=== PATIENT | female | born 2005 | race Caucasian/White ===

== ENCOUNTER 2024-03-10 18:29 | Observation (INO) | payer MEDICAID, SELFPAY ==
[2024-03-10] VITALS (7 sets, daily range): BP systolic 92–129; BP diastolic 54–64; PULSE 71–170; RESP 16; TEMP 37–37.1; O2SAT 97–98
--- NOTE | 2024-03-10 18:30 | RT.EKG_ITS ---
APPROVED REPORT Exam: Resting ECG Reason for Exam: Chest Patient Location: E HR:77 bpm ECG Measurements Heart Rate 77 AXIS FL 132 P 23 QRSd 81 QRS 33 QT 377 T 32 QTc 426 Conclusion Sinus rhythm...normal P axis, V-rate 60- 99 sinus rhythm, normal axis, normal intervals, non ischemic
--- NOTE | 2024-03-10 18:41 | ED.GENADUL_ITS ---
Discharge Plan Disposition Patient Disposition: Admit to [facility] Condition: Stable Discharge Details Clinical Impression: Acute cholecystitis Primary Care Provider: None,None ED Provider: Peggy Disla Home Meds and New Rx's Prescriptions: No Action No Known Home Meds [facility] General Mode of arrival: ambulatory . Date/Time Provider Initiated Documentation: 03/10/24 18:37 . Limitations to Documentation: no limitations . Information obtained by: patient, RN notes reviewed and old records reviewed . HPI Narrative: 18-year-old female who is 5 weeks from emergency , presents to the ER with chief complaint of upper back chest and upper abdominal pain that began this morning. Associated with nausea no vomiting no diarrhea. Patient does endorse vaping. No other abdominal surgeries reported. Related Data Home Medications Medication Instructions Recorded Confirmed Unknown [No Known Home Meds] 03/10/24 03/10/24 Allergies Allergy/AdvReac Type Severity Reaction Status Date / Time No Known Allergies Allergy Unverified 03/10/24 18:36 General Stated Complaint: Chest Pain [place]: 3 Review of Systems All systems reviewed & are unremarkable except as noted in HPI and below Cardiovascular Cardiovascular: Reports chest pain and Reports dyspnea on exertion Respiratory Respiratory: Reports dyspnea on exertion Gastrointestinal Gastrointestinal: Reports as per HPI, Reports abdominal pain and Reports nausea Musculoskeletal Musculoskeletal: Reports back pain Exam Narrative Exam Narrative: Constitutional: Alert and oriented x3. Appears stated age. Obese body habitus. Head: Normocephalic, no trauma. Eyes: Pupils PERRL, Red reflex noted, EOM's intact. Eyelids symmetrical without lesions, discharge, or swelling. ENT: Bilateral TM's WNL, External ear normal to inspection, no mastoid TTP, swelling, or erythema, Nasal turbinates WNL, no nasal discharge. Normal dentition, Posterior pharynx WNL, no exudate. Chest: RRR, Normal S1, S2, distal pulses intact. Resp: Lungs clear to auscultation bilaterally, no wheezes, rales, or rhonchi. Abdomen: Soft, non-distended, Normoactive bowel sounds all 4 quads. Tender to RUQ with palpation. Musculoskeletal: Normal gait, Moves all 4 extremities without difficulty. Skin: No suspicious rashes or lesions. Capillary refill less than 2 sec. Neurologic: Cranial nerves II-XII intact. Alert and oriented x 3. Motor: No deficits noted. Sensory: Intact bilaterally all 4 extremities. Hematologic/Lymphatic: No ecchymosis, no lymphadenopathy. Course Vital Signs Vital signs: Vital Signs Temperature 37.1 C 03/10/24 18:33 Pulse 79 03/10/24 18:33 Respiratory Rate 16 03/10/24 18:33 Blood Pressure 129/64 03/10/24 18:33 Pulse Oximetry 98 03/10/24 18:33 Temperature 37.1 C 03/10/24 18:33 Temperature Source Temporal Artery Scan 03/10/24 18:33 Pulse 79 03/10/24 18:33 Respiratory Rate 16 03/10/24 18:33 Respiratory Effort Normal 03/10/24 18:36 Blood Pressure 129/64 03/10/24 18:33 Pulse Oximetry 98 03/10/24 18:33 Pain Level 8 03/10/24 18:33 Medical Decision Making 18-year-old female who is 5 weeks from emergency , presents to the ER with chief complaint of upper back chest and upper abdominal pain that began this morning. Associated with nausea no vomiting no diarrhea. Patient does endorse vaping. No other abdominal surgeries reported. She is not currently breast-feeding. Differential diagnosis includes but not limited to cholecystitis, pneumonia, PE Workup ordered including EKG, CBC CMP lipase, troponin will consider CT chest abdomen pelvis. EKG was reviewed by Dr. Brittani Moses ER attending, no old EKG, no STEMI. CT shows acute cholecystitis, spoke with Dr. Morrison who recommends cholecystectomy and admission, he will place orders. Discussed results with patient, she is requesting to go home and come back tomorrow, I did discuss with her that it would be against medical advice if she leaves. She states that if her baby and significant other can stay with her, she will agree to stay. Ok'd with charhouse worker that family can stay with patient. Patient informed by direct support staff. This text was generated using [employer] system, please disregard any oddities of phrase or misspellings. Imaging Data Radiologic Study: Imaging: CT Scan Radiologist's impression: VASCULATURE: Pulmonary arteries: No large central pulmonary embolism is identified. The small and distal pulmonary arteries are partially obscured by artifact from breathing motion and not well evaluated for diagnosis or exclusion of small or distal pulmonary emboli. Aorta: No thoracic or abdominal aortic aneurysm or dissection. Celiac trunk and mesenteric arteries: Celiac, superior mesenteric, and inferior mesenteric arteries grossly patent, as seen. Renal arteries: Right and left renal arteries grossly patent, as seen. Right iliac arteries: Right common iliac, internal iliac, and external iliac arteries widely patent. CLARE PETER Preliminary Radiology Report Page 2 of 3 Right femoral/popliteal arteries: Right common femoral and visualized proximal right superficial femoral arteries widely patent. Left iliac arteries: Left common iliac, internal iliac, and external iliac arteries widely patent. Left femoral/popliteal arteries: Left common femoral and visualized proximal left superficial femoral arteries widely patent. Thyroid: Thyroid gland partially excluded from view and partially obscured by artifact but grossly unremarkable, as seen, through its visualized portion. CHEST: Lungs: Lung manning somewhat obscured by artifact from breathing motion. Minimal patchy micronodular and tree-in-bud opacity, more prominent on the right. No region of tianna pulmonary consolidation. Pleural spaces: No pleural effusion or pneumothorax. Heart: Normal-sized heart. ABDOMEN AND PELVIS: Liver: Hepatomegaly, 18 cm craniocaudal dimension in the midclavicular line. Gallbladder and bile ducts: Prominent gallbladder distension. Circumferential gallbladder wall thickening. Subtle heterogeneous density in the gallbladder neck suspicious for noncalcified stones and/or sludge. No biliary dilatation. Pancreas: Normal appearing pancreas. Spleen: Normal appearing spleen. Adrenal glands: Normal appearing adrenal glands. Kidneys and ureters: Normal appearing kidneys. No hydronephrosis. Stomach and bowel: Stomach moderately distended with ingested material, fluid, and gas. No small bowel dilatation to suggest obstruction. Normal-appearing colon. No evidence of diverticulitis or colitis. Appendix: Ghostlike appendix partially obscured but normal in caliber and appearance through its visualized portion. Intraperitoneal space: No gross ascites or free air. Urinary bladder: Normal appearing urinary bladder. Reproductive: Uterus and ovaries partially obscured but normal in size. Lymph nodes: No pathologically enlarged mediastinal or hilar lymph nodes. No pathologically enlarged mesenteric, retroperitoneal, or pelvic sidewall lymph nodes. Bones/joints: No acute fracture seen among the bones of the chest, abdomen, or pelvis. Soft tissues: No gross soft tissue mass or fluid collection seen in the chest wall. No significant ventral or inguinal hernia. IMPRESSION: 1. Suspected acute cholecystitis. Clinical correlation recommended. 2. Hepatomegaly, 10 cm. 3. No thoracic or abdominal aortic aneurysm or dissection. of 3 4. Minimal patchy micronodular and tree-in-bud opacity, more prominent on the right, partially obscured by motion and not well evaluated; however, mild or early acute infectious bronchiolitis could have this appearance. Thank you for allowing us to participate in the care of your patient. Dictated and Authenticated by: Jem Dhaliwal MD Lab Data Lab results reviewed: Yes I reviewed the patient's lab results. Labs: Laboratory Tests Range/Units 03/10/24 03/10/24 03/10/24 18:37 20:40 21:21 WBC (4.4-10.8) 10^3/uL 9.11 RBC (3.93-5.22) 10^6/uL 5.44 H Hgb (11.2-15.7) g/dL 11.9 Hct (36.0-46.0) % 39.9 MCV (80-95) fL 73 L MCH (27.0-33.0) pg 21.9 L MCHC (32.0-36.0) % 29.8 L RDW (11.7-14.6) % 17.5 H Plt Count (130-400) 10^3/uL 432 H MPV (8.0-11.0) fL 9.7 Immature Gran % % 0.2 Neutrophils % % 45.3 Lymphocytes % % 43.7 Monocytes % % 6.5 Eosinophils % % 3.5 Basophils % % 0.8 Nucleated RBC % (0.0-0.3) % 0.0 Absolute Neutrophils (1.2-6.7) 10^3/uL 4.13 Absolute Lymphocytes (1.2-3.4) 10^3/uL 3.98 H Absolute Monocytes (0.1-0.8) 10^3/uL 0.59 Absolute Eosinophils (0.0-0.7) 10^3/uL 0.32 Absolute Basophils (0.0-0.2) 10^3/uL 0.07 RBC Morphology See Below Microcytosis 1+ Sodium (136-145) mmol/L 145 Potassium (3.5-5.1) mmol/L 3.6 Chloride (98-107) mmol/L 106 Carbon Dioxide (21.0-32.0) mmol/L 30.1 Anion Gap (3-11) mmol/L 8.9 BUN (7-18) mg/dL 12 Creatinine (0.55-1.02) mg/dL 0.9 Est GFR (CKD-EPI 2020) (mL/min/1.73m2) 93.86 Glucose (74-106) mg/dL 93 Calcium (8.5-10.1) mg/dL 9.8 Magnesium (1.8-2.4) mg/dL 1.6 L Total Bilirubin (0.2-1.0) mg/dL 0.3 AST (15-37) U/L 22 ALT (14-59) U/L 53 Alkaline Phosphatase (46-116) U/L 154 H Troponin I (< or =60) ng/L < 50 < 50 Total Protein (6.4-8.2) g/dL 7.6 Albumin (3.4-5.0) g/dL 3.6 Lipase (16-77) U/L 34 Urine Color (Yellow) Yellow Urine Clarity (Clear) Clear Urine pH (5-8) 7.0 Ur Specific [place] (1.005-1.025) 1.015 Urine Protein (Neg-Trace) mg/dL Negative Urine Ketones (Negative) mg/dL Negative Urine Blood (Negative) Negative Urine Nitrite (Negative) Negative Urine Bilirubin (Negative) Negative Urine Urobilinogen (Up to 0.2) mg/dL 1.0 H Ur Leukocyte Esterase (Negative) Negative Urine Glucose (Negative) mg/dL Negative Quality:SDOH Health Related Social Needs: Health related social needs risk of homeless PFSH All Active Problems (Updated 03/10/24 @ 22:43 by Peggy Disla NP) Acute cholecystitis (Acute) Social History Smoking risk assessment performed?: No
[2024-03-10 19:12] LABS: Abs Immature Grans 0.02 10^3/uL (0.0-0.06); Absolute Basophil Count 0.07 10^3/uL (0.0-0.2); Absolute Eosinophil Count 0.32 10^3/uL (0.0-0.7); Absolute Lymphocyte Count 3.98 10^3/uL (1.2-3.4); Absolute Monocyte Count 0.59 10^3/uL (0.1-0.8); Absolute Neutrophil Count 4.13 10^3/uL (1.2-6.7); Basophils % 0.8 %; Eosinophils % 3.5 %; HCT 39.9 % (36.0-46.0); HGB 11.9 g/dL (11.2-15.7); Immature Grans % 0.2 %; Lymphocytes % 43.7 %; MCH 21.9 pg (27.0-33.0); MCHC 29.8 % (32.0-36.0); MCV 73 fL (80-95); MPV 9.7 fL (8.0-11.0); Monocytes % 6.5 %; Neutrophils % 45.3 %; Platelet Count 432 10^3/uL (130-400); RBC 5.44 10^6/uL (3.93-5.22); RDW 17.5 % (11.7-14.6); RDW-SD 45.9 fL; WBC 9.11 10^3/uL (4.4-10.8)
[2024-03-10 19:27] LABS: Diff Comment RBC Morph Reviewed
[2024-03-10 19:28] LABS: Microcytosis 1+
[2024-03-10 19:31] LABS: ALT 53 U/L (14-59); AST 22 U/L (15-37); Albumin 3.6 g/dL (3.4-5.0); Alkaline Phosphatase 154 U/L (46-116); Anion Gap 8.9 mmol/L (3-11); BUN 12 mg/dL (7-18); Bilirubin, Total 0.3 mg/dL (0.2-1.0); CO2 30.1 mmol/L (21.0-32.0); CREATININE 0.9 mg/dL (0.55-1.02); Calcium 9.8 mg/dL (8.5-10.1); Chloride 106 mmol/L (98-107); Estimated GFR 93.86 (mL/min/1.73m2); Glucose 93 mg/dL (74-106); Lipase 34 U/L (16-77); Magnesium 1.6 mg/dL (1.8-2.4); Potassium 3.6 mmol/L (3.5-5.1); Sodium 145 mmol/L (136-145); Total Protein 7.6 g/dL (6.4-8.2); Troponin I < 50 ng/L (< or =60)
--- NOTE | 2024-03-10 20:00 | DI.CT_ITS ---
Exam(s) CT CHEST PE ABD PELVIS W EXAM: CT CHEST PE ABD PELVIS W CLINICAL HISTORY: Chest Pain, RUQ abd pain, S/P . TECHNIQUE: Imaging Protocol: Axial CT angiography was performed with multi-slice acquisition and mu lti-planar and/or 3D reconstructions. CONTRAST MATERIAL: Intravenous: Omnipaque 350contrast volume:100 mL COMPARISON: No exams were available for comparison FINDINGS: The examination is limited due to patient motion artifact. CHEST: Tracheobronchial tree: Patent where visualized. Pulmonary parenchyma: No consolidation or dominant measurable mass. No architectural distortion. Ther e is a mild micronodular infiltrate in the right upper lobe. No focal consolidation is seen. Pulmonary Arteries: The poor for pulmonary arteries are suboptimally visualized visualized secondary to patient motion artifact. No large central pulmonary embolism is seen. Mediastinum and Marilee: No dominant adenopathy or fluid collection. The esophagus is unremarkable. Ther e is soft tissue in the anterior mediastinum likely reflecting residual thymic tissue. Visualized thyroid gland: Unremarkable. Pleura: No effusion or pneumothorax. Heart: The heart is not dilated. No coronary artery calcifications are seen. No pericardial effusion. Aorta: Thoracic aorta non-dilated. No evidence of dissection. Bones: Within normal limits for the patient's age. Soft tissues: Unremarkable. ABDOMEN: Liver: Normal density. No measurable mass. Portal, Superior Mesenteric, and Splenic Veins: Unremarkable. Gallbladder and Biliary Tract: Cholelithiasis. No biliary ductal dilatation. The gallbladder is dis tended measuring 4.8 cm. No inflammatory stranding is seen. There is a question of gallbladder wall thickening. Pancreas: Normal density, no abnormal calcifications or inflammatory process. Spleen: Normal. Adrenals: No masses seen. Kidneys: Normal size, contour and axis. No radiodense stones or obstructive uropathy. No masses seen. Abdominal Aorta: Abdominal portion non-dilated. Bowel: No obstruction or bowel wall thickening. No evidence of appendicitis. Peritoneal Cavity: No ascites, collection or mesenteric inflammatory response. No free air. Lymph Nodes: Within normal limits. Bones: Within normal limits for the patient's age. Soft Tissues: Unremarkable. PELVIS: Bladder: Symmetric distention, no gross wall thickening. Reproductive Organs: Unremarkable as visualized. Lymph Nodes: Within normal limits. Bones: Within normal limits. IMPRESSION: 1. There is patient motion artifact limiting evaluation of the peripheral pulmonary arteries. No lar ge pulmonary embolus is seen. No evidence of right heart strain. 2. No evidence of thoracic aortic dissection or aneurysm. 3. Small micronodular right upper lobe infiltrate. This may represent small airways disease. Please correlate clinically. 4. Cholelithiasis. Distended gallbladder and question of gallbladder wall thickening. This may repr esent an acute cholecystitis. Gallbladder ultrasound should be considered for further evaluation. RADIATION DOSE DELIVERED: 2,138.99mGy.cm Total DLP DATA REPOSITORY: All CT scans at this facility are submitted to the National Radiology Data Registry (NRDR) Dose Index Registry (DIR) with the [employer] (ACR). RADIATION OPTIMIZATION: All CT scans at this facility use at least one of these dose optimization te chniques: automated exposure control; mA and/or kV adjustment per patient size (includes targeted exa ms where dose is matched to clinical indication); or iterative reconstruction.
[2024-03-10] MEDS: Omnipaque 350 MG/ML 100 ML BTL IJ (20:32)
[2024-03-10] MEDS: Normal Saline - Diluent 50 ML VIAL IJ (20:32)
[2024-03-10 20:53] LABS: Bilirubin Negative (Negative); Blood Negative (Negative); Clarity Clear (Clear); Glucose Negative (Negative); Ketones Negative (Negative); Leukocyte Esterase Negative (Negative); Nitrite Negative (Negative); Specific Gravity 1.015 (1.005-1.025)
[2024-03-10 21:47] LABS: Troponin I < 50 ng/L (< or =60)
--- NOTE | 2024-03-10 21:56 | DI.VRAD_ITS ---
PROCEDURE INFORMATION: Exam: CTA Chest With Contrast CTA Abdomen With Contrast Exam date and time: 03/10/2024 8:16 PM Age: 18 years old Clinical indication: Chest wall pain; Other: Ruq abd pain; Additional info: Chest pain, ruq abd pain, S/P TECHNIQUE: Imaging protocol: Computed tomographic angiography of the chest with contrast. Exam focused on the arteries. Computed tomographic angiography of the abdomen with contrast. Exam focused on the arteries. 3D rendering (Not supervised by radiologist): MIP and/or 3D reconstructed images were created by the technologist. Contrast material: OMNI 350; Contrast volume: 100 ml; Contrast route: INTRAVENOUS (IV); COMPARISON: No relevant prior studies available. FINDINGS: VASCULATURE: Pulmonary arteries: No large central pulmonary embolism is identified. The small and distal pulmonary arteries are partially obscured by artifact from breathing motion and not well evaluated for diagnosis or exclusion of small or distal pulmonary emboli. Aorta: No thoracic or abdominal aortic aneurysm or dissection. Celiac trunk and mesenteric arteries: Celiac, superior mesenteric, and inferior mesenteric arteries grossly patent, as seen. Renal arteries: Right and left renal arteries grossly patent, as seen. Right iliac arteries: Right common iliac, internal iliac, and external iliac arteries widely patent. Right femoral/popliteal arteries: Right common femoral and visualized proximal right superficial femoral arteries widely patent. Left iliac arteries: Left common iliac, internal iliac, and external iliac arteries widely patent. Left femoral/popliteal arteries: Left common femoral and visualized proximal left superficial femoral arteries widely patent. Thyroid: Thyroid gland partially excluded from view and partially obscured by artifact but grossly unremarkable, as seen, through its visualized portion. CHEST: Lungs: Lung manning somewhat obscured by artifact from breathing motion. Minimal patchy micronodular and tree-in-bud opacity, more prominent on the right. No region of tianna pulmonary consolidation. Pleural spaces: No pleural effusion or pneumothorax. Heart: Normal-sized heart. ABDOMEN AND PELVIS: Liver: Hepatomegaly, 18 cm craniocaudal dimension in the midclavicular line. Gallbladder and bile ducts: Prominent gallbladder distension. Circumferential gallbladder wall thickening. Subtle heterogeneous density in the gallbladder neck suspicious for noncalcified stones and/or sludge. No biliary dilatation. Pancreas: Normal appearing pancreas. Spleen: Normal appearing spleen. Adrenal glands: Normal appearing adrenal glands. Kidneys and ureters: Normal appearing kidneys. No hydronephrosis. Stomach and bowel: Stomach moderately distended with ingested material, fluid, and gas. No small bowel dilatation to suggest obstruction. Normal-appearing colon. No evidence of diverticulitis or colitis. Appendix: Ghostlike appendix partially obscured but normal in caliber and appearance through its visualized portion. Intraperitoneal space: No gross ascites or free air. Urinary bladder: Normal appearing urinary bladder. Reproductive: Uterus and ovaries partially obscured but normal in size. Lymph nodes: No pathologically enlarged mediastinal or hilar lymph nodes. No pathologically enlarged mesenteric, retroperitoneal, or pelvic sidewall lymph nodes. Bones/joints: No acute fracture seen among the bones of the chest, abdomen, or pelvis. Soft tissues: No gross soft tissue mass or fluid collection seen in the chest wall. No significant ventral or inguinal hernia. IMPRESSION: 1. Suspected acute cholecystitis. Clinical correlation recommended. 2. Hepatomegaly, 10 cm. 3. No thoracic or abdominal aortic aneurysm or dissection. 4. Minimal patchy micronodular and tree-in-bud opacity, more prominent on the right, partially obscured by motion and not well evaluated; however, mild or early acute infectious bronchiolitis could have this appearance. Dictated and Authenticated by: Jem Dhaliwal MD. Ordering:IRVING Woods MD
--- NOTE | 2024-03-10 22:10 | HPE_ITS ---
Date of service: 03/10/24 Time of Service: 22:10 Assessment and Plan Assessment and plan (1) Acute cholecystitis: Status: Acute Assessment and plan: History does seem consistent with acute cholecystitis, however, she is not very tender, and other inflammatory markers are all normal. I will admit her, and start her on some antibiotics, and repeat the labs in the morning. History of Present Illness History of Present Illness Chief Complaint: Abdominal pain Narrative: Jn is a 18-year-old woman who comes to the emergency department with acute onset of abdominal pain with nausea. Pain is sharp and stabbing, and radiates towards her back. Alk phos was noted to be mildly elevated, and she underwent a CT scan of the abdomen and pelvis. That showed a distended gallbladder with gallstones. Review of Systems Constitutional Constitutional: Reports fatigue (), Denies fever(s) and Reports poor appetite Eyes Eyes: Reports system reviewed and no additional complaints, except as documented ENT Ears, Nose, Mouth, and Throat: Reports system reviewed and no additional complaints, except as documented Cardiovascular Cardiovascular: Denies chest pain and Denies dyspnea Respiratory Respiratory: Denies chest congestion, Denies cough and Denies dyspnea Gastrointestinal Gastrointestinal: Reports abdominal pain, Reports cramping, Reports nausea and Denies vomiting Genitourinary Genitourinary: Reports system reviewed and no additional complaints, except as documented Musculoskeletal Musculoskeletal: Reports system reviewed and no additional complaints, except as documented Endocrine Endocrine: Reports fatigue () Hematologic/Lymphatic Hematologic/Lymphatic: Denies easy bleeding and Denies easy bruising PFSH All Active Problems (Updated 03/10/24 @ 22:43 by Peggy Disla NP) Acute cholecystitis (Acute) Social History Smoking risk assessment performed?: No Housing: other Meds Allergies and Home Medications Allergies Allergy/AdvReac Type Severity Reaction Status Date / Time No Known Allergies Allergy Unverified 03/10/24 18:36 Home Medications Medication Instructions Recorded Confirmed Type Unknown [No Known Home Meds] 03/10/24 03/10/24 History Exam GI Other: Abdomen is soft and nondistended. She is a little bit tender to some deep palpation, but I would consider this relatively mild. She is in no distress. Results Labs 03/10/24 18:37 03/10/24 18:37 Labs: Laboratory Results - last 24 hr 03/10/24 03/10/24 03/10/24 18:37 20:40 21:21 WBC 9.11 RBC 5.44 H Hgb 11.9 Hct 39.9 MCV 73 L MCH 21.9 L MCHC 29.8 L RDW 17.5 H Plt Count 432 H MPV 9.7 Immature Gran % 0.2 Neutrophils % 45.3 Lymphocytes % 43.7 Monocytes % 6.5 Eosinophils % 3.5 Basophils % 0.8 Nucleated RBC % 0.0 Absolute Neutrophils 4.13 Absolute Lymphocytes 3.98 H Absolute Monocytes 0.59 Absolute Eosinophils 0.32 Absolute Basophils 0.07 RBC Morphology See Below Microcytosis 1+ Sodium 145 Potassium 3.6 Chloride 106 Carbon Dioxide 30.1 Anion Gap 8.9 BUN 12 Creatinine 0.9 Est GFR (CKD-EPI 2020) 93.86 Glucose 93 Calcium 9.8 Magnesium 1.6 L Total Bilirubin 0.3 AST 22 ALT 53 Alkaline Phosphatase 154 H Troponin I < 50 < 50 Total Protein 7.6 Albumin 3.6 Lipase 34 Urine Color Yellow Urine Clarity Clear Urine pH 7.0 Ur Specific [place] 1.015 Urine Protein Negative Urine Ketones Negative Urine Blood Negative Urine Nitrite Negative Urine Bilirubin Negative Urine Urobilinogen 1.0 H Ur Leukocyte Esterase Negative Urine Glucose Negative Last Vital Signs Temp 98.8 F 03/10/24 18:33 Pulse 74 03/10/24 22:03 Resp 16 03/10/24 18:33 BP 122/55 L 03/10/24 22:03 Pulse Ox 98 03/10/24 22:03 Time Spent Time spent with Patient: <40 minutes Time was spent: preparing to see the patient(eg.review tests), referring, communicating with other health care management associate, indepentently interpreting results and counseling the patient
[2024-03-11] MEDS: ACETAMINOPHEN 1,000 MG/100 ML BTL 400 MG IVPB ×2 (01:17→06:00)
[2024-03-11] MEDS: Lactated Ringers 1,000 ML 75 ML IV (01:17)
--- NOTE | 2024-03-11 02:35 | NUR.NOTE ---
I am making this note for clear communication. Antibiotic Admin Note. At the time of this note, i recognized that i mixed a zosyn, 3.375g in 100ml of 0.9% NS instead of the ordered 50ml of NS. the medication was not given to the patient. the medication will be wasted and another vial collected. Nursing Note:
[2024-03-11] MEDS: PIPERACILLIN/TAZO 3.375 GM in Normal Saline 50 ML IVPB ×2 (02:54→08:35)
[2024-03-11 05:10] VITALS: BP 106/60; PULSE 77; RESP 16; TEMP 35.6; O2SAT 97
[2024-03-11 08:00] VITALS: BP 100/66; PULSE 62; RESP 18; TEMP 36; O2SAT 98
[2024-03-11] MEDS: Normal Saline Flush 10 ML SYR IVP (08:35)
[2024-03-11 10:23] LABS: BUN 8 mg/dL (7-18); CREATININE 0.8 mg/dL (0.55-1.02); Calcium 8.6 mg/dL (8.5-10.1); Estimated GFR 108.11 (mL/min/1.73m2); Glucose 91 mg/dL (74-106)
[2024-03-11 10:24] LABS: ALT 51 U/L (14-59); AST 28 U/L (15-37); Albumin 2.9 g/dL (3.4-5.0); Alkaline Phosphatase 125 U/L (46-116); Anion Gap 10.4 mmol/L (3-11); Bilirubin, Total 0.4 mg/dL (0.2-1.0); CO2 26.6 mmol/L (21.0-32.0); Chloride 106 mmol/L (98-107); Potassium 3.9 mmol/L (3.5-5.1); Sodium 143 mmol/L (136-145); Total Protein 6.4 g/dL (6.4-8.2)
[2024-03-11 10:25] LABS: RBC 4.69 10^6/uL (3.93-5.22); WBC 7.48 10^3/uL (4.4-10.8)
[2024-03-11 10:26] LABS: Absolute Basophil Count 0.06 10^3/uL (0.0-0.2); Absolute Eosinophil Count 0.28 10^3/uL (0.0-0.7); Absolute Lymphocyte Count 3.27 10^3/uL (1.2-3.4); Absolute Monocyte Count 0.55 10^3/uL (0.1-0.8); Absolute Neutrophil Count 3.29 10^3/uL (1.2-6.7); Basophils % 0.8 %; Eosinophils % 3.7 %; HCT 34.6 % (36.0-46.0); HGB 10.4 g/dL (11.2-15.7); Immature Grans % 0.4 %; Lymphocytes % 43.7 %; MCH 22.2 pg (27.0-33.0); MCHC 30.1 % (32.0-36.0); MCV 74 fL (80-95); MPV 10.1 fL (8.0-11.0); Monocytes % 7.4 %; Platelet Count 365 10^3/uL (130-400); RDW 17.4 % (11.7-14.6); RDW-SD 45.9 fL
[2024-03-11 10:27] LABS: Abs Immature Grans 0.03 10^3/uL (0.0-0.06); Diff Comment RBC Morph Reviewed; Microcytosis 2+
--- NOTE | 2024-03-11 11:07 | PGE_ITS ---
Date of Service Date of service: 03/11/24 Time of Service: 11:07 Assessment and Plan Assessment and plan (1) Acute cholecystitis: Status: Acute Assessment and plan: White count remains normal, she has been afebrile. Furthermore, her symptoms have improved quite a bit. With a normalizing alk phos, I suspect this is more like biliary colic than true acute cholecystitis. I will advance her diet and see how she feels this morning. If symptoms continue to improve, then we will plan for discharge home and outpatient interval cholecystectomy. Subjective Subjective Interval history since last seen: Jn is feeling quite tired, but overall feels better than yesterday. She says her pain has improved dramatically. She has a little bit of an appetite this morning, and denies any nausea. Exam GI Other: Abdomen is soft, and she is not at all tender in the right upper quadrant. She is not distended. She has good bowel sounds. Objective Last Vital Signs Temp 96.8 F L 03/11/24 08:00 Pulse 62 03/11/24 08:00 Resp 18 03/11/24 08:00 BP 100/66 03/11/24 08:00 Pulse Ox 98 03/11/24 08:00 Laboratory Results - last 24 hr 03/10/24 03/10/24 03/10/24 18:37 20:40 21:21 WBC 9.11 RBC 5.44 H Hgb 11.9 Hct 39.9 MCV 73 L MCH 21.9 L MCHC 29.8 L RDW 17.5 H Plt Count 432 H MPV 9.7 Immature Gran % 0.2 Neutrophils % 45.3 Lymphocytes % 43.7 Monocytes % 6.5 Eosinophils % 3.5 Basophils % 0.8 Nucleated RBC % 0.0 Absolute Neutrophils 4.13 Absolute Lymphocytes 3.98 H Absolute Monocytes 0.59 Absolute Eosinophils 0.32 Absolute Basophils 0.07 RBC Morphology See Below Microcytosis 1+ Sodium 145 Potassium 3.6 Chloride 106 Carbon Dioxide 30.1 Anion Gap 8.9 BUN 12 Creatinine 0.9 Est GFR (CKD-EPI 2020) 93.86 Glucose 93 Calcium 9.8 Magnesium 1.6 L Total Bilirubin 0.3 AST 22 ALT 53 Alkaline Phosphatase 154 H Troponin I < 50 < 50 Total Protein 7.6 Albumin 3.6 Lipase 34 Urine Color Yellow Urine Clarity Clear Urine pH 7.0 Ur Specific [place] 1.015 Urine Protein Negative Urine Ketones Negative Urine Blood Negative Urine Nitrite Negative Urine Bilirubin Negative Urine Urobilinogen 1.0 H Ur Leukocyte Esterase Negative Urine Glucose Negative 03/11/24 06:19 WBC 7.48 RBC 4.69 Hgb 10.4 L Hct 34.6 L MCV 74 L MCH 22.2 L MCHC 30.1 L RDW 17.4 H Plt Count 365 MPV 10.1 Immature Gran % 0.4 Neutrophils % 44.0 Lymphocytes % 43.7 Monocytes % 7.4 Eosinophils % 3.7 Basophils % 0.8 Nucleated RBC % 0.0 Absolute Neutrophils 3.29 Absolute Lymphocytes 3.27 Absolute Monocytes 0.55 Absolute Eosinophils 0.28 Absolute Basophils 0.06 RBC Morphology See Below Microcytosis 2+ Sodium 143 Potassium 3.9 Chloride 106 Carbon Dioxide 26.6 Anion Gap 10.4 BUN 8 Creatinine 0.8 Est GFR (CKD-EPI 2020) 108.11 Glucose 91 Calcium 8.6 Magnesium Total Bilirubin 0.4 AST 28 ALT 51 Alkaline Phosphatase 125 H Troponin I Total Protein 6.4 Albumin 2.9 L Lipase Urine Color Urine Clarity Urine pH Ur Specific [place] Urine Protein Urine Ketones Urine Blood Urine Nitrite Urine Bilirubin Urine Urobilinogen Ur Leukocyte Esterase Urine Glucose Time Spent with Patient Time Spent with Patient: 25-34 minutes Time was spent: preparing to see the patient(eg.review tests), indepentently interpreting results and counseling the patient
--- NOTE | 2024-03-11 12:29 | DSE_ITS ---
Date of service: 03/11/24 Time of Service: 12:29 DS: Diagnosis Discharge Diagnosis (1) Acute cholecystitis: Status: Acute Asessment and Plan: Discharge home with antibiotics and outpatient follow-up Discharge Plan Disposition Patient Disposition: Home Condition: Improving Discharge Details Reason For Visit: Acute cholecystitis Admit Date/Time: 03/10/24 22:15 Admit Provider: Jared Morrison Attending Provider: Jared Morrison Primary Care Provider: None,None Hospital Course Hospital Course: Jn is 18 years old, and she came to the hospital with abdominal pain and nausea. Lab findings raise the possibility of cholecystitis, and she underwent a CT scan of the abdomen and pelvis. That demonstrated distended gallbladder with gallstones. She was admitted and kept NPO. Antibiotics were started. By the morning, her pain had resolved and she was tolerating a diet without any issues. She was discharged home with outpatient instructions, and plan for interval cholecystectomy Home Meds and New Rx's Prescriptions: New ciprofloxacin HCl [Cipro] 500 mg tablet 500 mg PO BID Qty: 12 0RF Rx Instructions: Take 1 tablet by mouth in the morning, 1 tablet by mouth in the evening Discharge Instructions Instructions: Biliary Colic (GEN), Low Fat Diet (DC) Additional Instructions: Jn, It was a pleasure meeting you in the hospital, and I hope you make a quick recovery. Like we talked about while you are here, you do have stones within your gallbladder, and I suspect that is the source of the pain that you experienced. Thankfully, your labs and vital signs have all been reassuring, and it seems like he tolerated a diet, which sometimes can exacerbate the symptoms. I would like to treat you for 6 more days with the antibiotics. I provided a prescription for a medication called ciprofloxacin. He will take it once in the morning, and once in the evening for 6 more days. I have also taken the liberty of scheduling a follow-up appointment in my office. I would like to see you on the at 8:45 in the morning. If you cannot make that time, please feel free to contact the office, and find a time in day that works a little better for you. In the meantime, I would suggest trying to stay away from any foods that contain a significant amount of fat. I attached a document that describes some things that may be a little easier to tolerate. This is important, because fats tend to exacerbate symptoms of gallstones. Like we talked about while you are in the hospital, I do think you will benefit from removal of your gallbladder in the near future. I typically recommend about 4 to 6 weeks from the time of your attack in order to give a chance for the inflammation to resolve a bit. If you develop any similar symptoms in the meantime, please do not hesitate to call the office, or go back to the emergency department if it is after hours. If that is the case, then we may need to rethink the timing of your gallbladder removal. If you have any questions at all please give me a call. Activity:: Activity as Tolerated Equipment/Supplies:: No Equipment Needed Diet:: Low-fat DS: Summary Time Spent with Patient providing and/or coordinating discharge services: Less than 30 minutes Status at Discharge Functional status at discharge: independent ambulation Overall status at discharge: patient is back to baseline Mental Status: mental status grossly normal Speech and Movement: speech and movement normal Mood: congruent mood Affect: normal affect Quality:SDOH Health Related Social Needs: Health related social needs material hardship, food in security, transpo insecurity, personal safety Exam GI Other: Abdomen is soft and nontender. She is not distended. Psych Mental Status: mental status grossly normal Speech and Movement: speech and movement normal Mood: congruent mood Affect: normal affect DS: Data Vitals/I&O Vitals and I&O: Vital Signs Temperature 96.8 F L 03/11/24 08:00 Temperature Source Tympanic 03/11/24 08:00 Pulse 62 03/11/24 08:00 Pulse Rhythm Regular 03/10/24 23:40 Respiratory Rate 18 03/11/24 08:00 Respiratory Effort Normal 03/10/24 23:40 Respiratory Depth Normal 03/10/24 23:40 Respiratory Pattern Normal 03/10/24 23:40 Blood Pressure 100/66 03/11/24 08:00 Blood Pressure Mean 50 03/10/24 22:53 Pulse Oximetry 98 03/11/24 08:00 Oxygen Delivery Method Room Air 03/11/24 08:00 Oxygen Flow Rate 0 03/11/24 08:00 Pain Level 3 03/11/24 08:00 Comment pt reports about a year ago had a gallbladder visit. ignored until this admission 03/10/24 23:04 Intake & Output 03/10/24 03/11/24 03/11/24 23:59 11:59 23:59 Intake Total 150 / 970 820 / 970 Balance 150 / 970 820 / 970 Weight 255 lb 11.779 oz Intake: IV 150 / 970 820 / 970 Data Completed and Pending Labs on day of discharge: Labs from last 24 hours 03/11/24 03/10/24 03/10/24 06:19 21:21 20:40 WBC 7.48 RBC 4.69 Hgb 10.4 L Hct 34.6 L MCV 74 L MCH 22.2 L MCHC 30.1 L RDW 17.4 H Plt Count 365 MPV 10.1 Immature Gran % 0.4 Neutrophils % 44.0 Lymphocytes % 43.7 Monocytes % 7.4 Eosinophils % 3.7 Basophils % 0.8 Nucleated RBC % 0.0 Absolute Neutrophils 3.29 Absolute Lymphocytes 3.27 Absolute Monocytes 0.55 Absolute Eosinophils 0.28 Absolute Basophils 0.06 RBC Morphology See Below Microcytosis 2+ Sodium 143 Potassium 3.9 Chloride 106 Carbon Dioxide 26.6 Anion Gap 10.4 BUN 8 Creatinine 0.8 Est GFR (CKD-EPI 2020) 108.11 Glucose 91 Calcium 8.6 Magnesium Total Bilirubin 0.4 AST 28 ALT 51 Alkaline Phosphatase 125 H Troponin I < 50 Total Protein 6.4 Albumin 2.9 L Lipase Urine Color Yellow Urine Clarity Clear Urine pH 7.0 Ur Specific [place] 1.015 Urine Protein Negative Urine Ketones Negative Urine Blood Negative Urine Nitrite Negative Urine Bilirubin Negative Urine Urobilinogen 1.0 H Ur Leukocyte Esterase Negative Urine Glucose Negative 03/10/24 18:37 WBC 9.11 RBC 5.44 H Hgb 11.9 Hct 39.9 MCV 73 L MCH 21.9 L MCHC 29.8 L RDW 17.5 H Plt Count 432 H MPV 9.7 Immature Gran % 0.2 Neutrophils % 45.3 Lymphocytes % 43.7 Monocytes % 6.5 Eosinophils % 3.5 Basophils % 0.8 Nucleated RBC % 0.0 Absolute Neutrophils 4.13 Absolute Lymphocytes 3.98 H Absolute Monocytes 0.59 Absolute Eosinophils 0.32 Absolute Basophils 0.07 RBC Morphology See Below Microcytosis 1+ Sodium 145 Potassium 3.6 Chloride 106 Carbon Dioxide 30.1 Anion Gap 8.9 BUN 12 Creatinine 0.9 Est GFR (CKD-EPI 2020) 93.86 Glucose 93 Calcium 9.8 Magnesium 1.6 L Total Bilirubin 0.3 AST 22 ALT 53 Alkaline Phosphatase 154 H Troponin I < 50 Total Protein 7.6 Albumin 3.6 Lipase 34 Urine Color Urine Clarity Urine pH Ur Specific [place] Urine Protein Urine Ketones Urine Blood Urine Nitrite Urine Bilirubin Urine Urobilinogen Ur Leukocyte Esterase Urine Glucose PFSH All Active Problems (Updated 03/10/24 @ 22:43 by Peggy Disla NP) Acute cholecystitis (Acute) Social History Smoking risk assessment performed?: No Housing: other Time Spent with Patient Time Spent with Patient: <45 minutes Time was spent: indepentently interpreting results and care coordination
--- NOTE | 2024-03-11 13:25 | NUR.NOTE ---
at 1320, staff alerted CC to 5wk old asleep with father who is also asleep on the cot. Patient is also asleep in hospital bed. Steeping Press Tender and myself in to offer assistance. Father did not wake with gentle shaking. At this point the patient woke up and staff had asked if the patient would want assistance placing the baby in the bassinette provided in the room, or if the patient and S.O. planned on continuing to sleep, allow someone to sit with the for safety. Pt stated Well it's my baby, I birthed her. Again staff just reiterated safety concern. Again pt stated He will not roll over while she is right there, and she is fine. Nursing Note:
--- NOTE | 2024-03-11 16:05 | CMDISCH_ITS ---
Date of service: 03/11/24 Time of Service: 16:05 LACE Index Scoring Tool Questions: Length of Stay (in days): 1 Was the patient admitted via the E.D.?: Yes E.D. Visits: 0 Answers: Total Score: 4 Risk of Readmission: Low Risk Care Management Discharge Plan Reason for Hospitalization: Cholecystitis; biliary colic Discharge Plan: Jn will return with her significant other and their five week old to the local hotel while awaiting housing in [place], where Jn is from. She provided feedback about her stay and care which was deferred to [facility] for follow up. She declines additional supports at this time, is tired and wants to leave. Jn declines offer for PCP attachment stating she just calls her OBGYN when she needs care. She reports anticipating relocating back to [place] in April. Patient/Family Education Needs: Review discharge instructions, discuss Ask Me Three. SDOH Health Related Social Needs: Health related social needs material hardship, food in security, transpo insecurity, personal safety Health related social needs: food insecurity(Z59.41), transportation insecurity(Z59.82), material hardship(utilities)(Z59.87) and problem related to primary support group(Z63.9) Health related social needs details: Awaiting housing in [place], in hotel with her and SO currently. Referrals and interventions: Patient declined additional services at this time.
== END 2024-03-11 14:09 | disposition home or self-care (01) ==
LOC: ER 22:53 → MS 22:57
PROVIDERS: Admitting Provider Surgery; Emergency Provider Registered Nurse Emergency; Visit Provider Surgery
DX: O86.89 Other specified puerperal infections (principal); K80.00 Calculus of gallbladder with acute cholecystitis without obstruction
CPT/HCPCS: 36415; 71275; 74177; 80053; 83690; 93005; 96365; 96366; 96367; 96376; 99285; 81003; 83735; 84484; 85025; 93010; G0378; J0131; J2543; J3490